=== PATIENT | female | born 1950 | race Hispanic/Latino ===

== ENCOUNTER 2023-11-29 16:10 | Emergency (ER) | payer MEDICARE ==
[~2023-11-29] VITALS: Ht 144.8 cm; Wt 54.0 kg
[2023-11-29 16:20] VITALS: PULSE 85; RESP 18; TEMP 97.7; O2SAT 97
[2023-11-29] MEDS ORDERED: PAXLOVID 300-11 EAC1 PO (17:12)
[2023-11-29] MEDS ORDERED: VENTOLIN HFA18 GM INH (17:12)
== END 2023-11-29 17:30 | disposition home or self-care (01) ==
LOC: FSED 16:16
DX: R05.9 Cough, unspecified (principal); U07.1 COVID-19; J06.9 Acute upper respiratory infection, unspecified; R19.7 Diarrhea, unspecified; R53.83 Other fatigue
CPT/HCPCS: 0223U; 83518; 87400; 99283